=== PATIENT | female | born 1970 | race Caucasian/White ===

== ENCOUNTER 2016-09-30 06:13 | Inpatient (IN) | payer OTHER ==
[2016-09-29 17:09] VITALS: BMI 44.4
[2016-09-30] VITALS (37 sets, daily range): BP systolic 82–115; BP diastolic 47–72; PULSE 62–107; RESP 5–28; Ht 157.5 cm; Wt 48.8 kg
[~2016-09-30] VITALS: Ht 157.5 cm; Wt 48.8 kg
[~2016-09-30 06:13] MED LIST: DIPH25CA6 PO; IMIT25 PO; IPRA4AER INHALATION; LORA10TA3 PO; MONT10TA24 PO; OMEP20CA16 PO
[2016-09-30] MEDS ORDERED: CEFAZOLIN 2 GM/50 ML (PMX) 50 ML IVPB SCH (07:00)
[2016-09-30] MEDS ORDERED: CEFAZOLIN 1 GM INJ ONE (07:00)
[2016-09-30] MEDS ORDERED: LACTATED RINGER'S 1,000 ML IV* SCH (07:00)
[2016-09-30] MEDS ORDERED: BEN25 PO (07:03)
[2016-09-30] MEDS ORDERED: ALBU18HF INHALATION (07:03)
[2016-09-30] MEDS ORDERED: IPRATROPIUM (NEB) 0.5 MG/2.5 ML AMP INH ONE (08:00)
[2016-09-30] MEDS ORDERED: ALBUTEROL 0.5% (NEB) 2.5 MG/0.5 ML AMP INH ONE (08:00)
--- NOTE | 2016-09-30 08:57 | HP ---
Date/Time of Note Date/Time of Note DATE: 09/30/16 TIME: 08:43 Assessment/Plan VTE Prophylaxis VTE Prophylaxis Intervention: ambulation Lines/Catheters IV Catheter Type (from Nrsg): Peripheral IV Assessment/Plan Assessment/Plan PELVIC PAIN LEFT OVARIAN CYST WEBB EXP LAP LEFT OVARIAN CYSTECTOMY POSS LSO POSS BSO HPI/ROS Admit Date/Time Admit Date/Time Sep 30, 2016 at 06:13 Hx of Present Illness 45y.o C/O LLQ PAIN FOR ALMOST 1YR WHO HAD LT OVARIAN CYSTECTOMY AT 18 YRS OLD WHO ALSO HAD X2C-S HERE FOR EXP LAP LT OVARIAN CYSTECTOMY FOR LEFT OVARIAN CYST WHICH HAS BEEN PERSISTANLY EXIST WHICH IS MORE THAN 4CM PATIENT WANTS TO PRESERVE FERTILITY IF ITS POSSIBLE ROS Genitourinary: no complaints, other (LEFT OWER QUADRANT PAIN) PMH/Family/Social Past Medical History Medical History: other (ASTHMA ALLERGIC RHINITIS) Past Surgical History Past Surgical Hx: other (X2 SECTION) Family History Significant Family History: cancer (STOMACH CANCER), hypertension (MOM GRAND MOM) Social History Alcohol Use: none Smoking Status: Never smoker Drug Use: none Exam/Review of Systems Vital Signs Vitals Vital Signs Date Time Temp Pulse Resp B/P Pulse Ox O2 Delivery O2 Flow Rate FiO2 09/30/16 08:18 73 20 98 21 09/30/16 06:52 98.6 96/72 Room Air Exam Constitutional: alert, oriented, well developed Genitourinary - Female: CMT, CVA tenderness, nl adnexae (LEFT OVARIAN CYST), nl external genitalia, other, uterus Medications Medications Current Medications Cefazolin Sodium/ Dextrose 50 ml @ 100 mls/hr PREOP IVPB ; Start 09/30/16 at 07 :00; Stop 09/30/16 at 15:00 Lactated Ringer's (Lr) 1,000 ml @ 125 mls/hr Q8H IV* ; Start 09/30/16 at 07:00 ; Stop 09/30/16 at 14:59 ABBEY CHARLES MD Sep 30, 2016 08:53
[2016-09-30] MEDS ORDERED: MEPERIDINE 25 MG INJ IV PRN (09:30)
[2016-09-30] MEDS ORDERED: ONDANSETRON 4 MG INJ IV PRN ×2 (09:30→10:00)
[2016-09-30] MEDS ORDERED: HYDROmorphONE (0.2 MG/ML) 10ML SYG IV PRN ×3 (09:30)
[2016-09-30] MEDS ORDERED: PROCHLORPERAZINE 10 MG INJ IV PRN (09:30)
[2016-09-30] MEDS ORDERED: DIPHENHYDRAMINE 50 MG INJ IV PRN ×2 (09:30→10:00)
[2016-09-30] MEDS ORDERED: HYDROmorphONE 0.2 MG/ML PCA ONE (10:00)
[2016-09-30] MEDS ORDERED: HYDROCODONE/APAP (5/325) TAB PO PRN (10:00)
[2016-09-30] MEDS ORDERED: NALOXONE (0.4 MG/ML) INJ IV PRN (10:00)
[2016-09-30] MEDS: FENTAnyl 50 MCG/ML VIAL IV PRN ×2 (10:05→10:28)
[2016-09-30] MEDS: HYDROmorphONE 0.2 MG/ML PCA IV SCH (10:11)
--- NOTE | 2016-09-30 12:32 | OPR ---
DATE OF OPERATION: 09/30/2016 PREOPERATIVE DIAGNOSIS: Pelvic pain, left ovarian cyst. POSTOPERATIVE DIAGNOSIS: Pelvic pain, left ovarian cyst. OPERATION PERFORMED: Exploratory laparoscopic hysterectomy, left ovarian cystectomy. ANESTHESIA: General. ANESTHESIOLOGIST: Dr. Farias SURGEON: Lv Coats MD PORTAL DEVELOPER: Brant Enamorado MD PROCEDURE: Under appropriate induction of general anesthesia, the patient was placed in the frog po sition. A Bah was inserted under sterile conditions and repositioned to supine. The abdominal wa ll was prepped and draped in the usual aseptic manner. A transverse incision was made under the pre vious scar, which was hardly seen, and went through the subcutaneous tissue to the recti fascia, whi ch was incised the length of the incision and a fascial flap was created by blunt and sharp dissecti on of the tendinous attachment upward and downward, and the rectus muscles split in the midline and the peritoneal cavity was entered. The pelvic organ was explored. The uterus was normal size and c onsistency and the left adnexa was palpated and felt a cystic structure, which was brought out throu gh the incision, which appeared to be approximately 5 cm in longitudinal diameter, width of 2.5-cm, which originated from the left ovary and cortex. It was rather outside next to the mesosalpinx and the left fallopian tube was spread over onto the cystic mass which has multiple small cystic structu res which was purplish colored and the entire cyst was thin walled, but not translucent. This was g ently from the fallopian tube and the fallopian tube was restored after the cystic structu re was removed unruptured. Then the defect was closed with 2-0 chromic catgut in continuous manner and this area was covered with a small piece of Interceed to prevent further adhesion. No bleeder w as noted. The right ovary was checked, which was normal in appearance. There was a small paratubal cyst which was less than 1 cm, which was punctured and drained. No bleeder was noted. Sponge count was correct. The parietal peritoneum was closed using 0 chromic catgut in continuous manner, muscle was closed with 0 chromic catgut in continuous manner. Fascia was closed with #1 Vicryl in continu ous manner. The subcutaneous tissue was closed with 0 plain in continuous manner. The skin was srinivas sed with 3-0 Monocryl in subcuticular manner. Steri-Strips were applied. Pressure dressing was cydney lied. Estimated blood loss was negligible. The patient withstood the procedure and was sent to the recovery room in stable condition. Dictated By: LV GAO/BOAZ Conf#: [id number] DID#: [id number]
[2016-09-30] MEDS ORDERED: NEOSTIGMINE 3 MG/3 ML SYRINGE ONE (17:03)
[2016-09-30] MEDS ORDERED: ONDANSETRON 4 MG INJ ONE (17:03)
[2016-09-30] MEDS ORDERED: PROPOFOL 20 ML ONE (17:03)
[2016-09-30] MEDS ORDERED: HYDROmorphONE 2 MG/ML SYG ONE (17:03)
[2016-09-30] MEDS ORDERED: SUCCINYLCHOLINE CHLORIDE 100 MG/5 ML SYG IV ONE (17:03)
[2016-09-30] MEDS ORDERED: FENTAnyl 50 MCG/ML VIAL ONE (17:03)
[2016-09-30] MEDS ORDERED: MIDAZOLAM 1 MG/ML 2 ML INJ ONE (17:03)
[2016-09-30] MEDS ORDERED: PHENYLephrine (100 MCG/ML) 5ML SYG ONE ×2 (17:03)
[2016-09-30] MEDS ORDERED: DEXAMETHASONE 4 MG/ML 1 ML INJ ONE (17:03)
[2016-09-30] MEDS ORDERED: FAMOTIDINE 20 MG INJ ONE (17:03)
[2016-09-30] MEDS ORDERED: ROCURONIUM 50 MG INJ ONE (17:03)
[2016-09-30] MEDS ORDERED: GLYCOPYRROLATE 0.4 MG INJ ONE (17:03)
[2016-09-30] MEDS ORDERED: LIDOCAINE 2% (SDV) 5 ML INJ ONE (17:03)
[2016-09-30] MEDS ORDERED: KETOROLAC 30 MG INJ ONE (17:03)
[2016-09-30 19:09] LABS: ADD UMIC YES; URINE BILIRUBIN (Dip) NEGATIVE (NEGATIVE); URINE BLOOD (Dip) TRACE (NEGATIVE); URINE COLOR LT. YELLOW (YELLOW); URINE GLUCOSE (Dip) NEGATIVE (NEGATIVE); URINE KETONES (Dip) NEGATIVE (NEGATIVE); URINE LEUKOCYTE ESTERASE (Dip) NEGATIVE (NEGATIVE); URINE NITRITE (Dip) NEGATIVE (NEGATIVE); URINE TOTAL PROTEIN (Dip) NEGATIVE (NEGATIVE); URINE UROBILINOGEN (Dip) 0.2 E.U./dL (0.1-1.0)
[2016-09-30 19:43] LABS: SQUAMOUS EPITHELIAL CELL,UR FEW
[2016-09-30] MEDS: IBUPROFEN 600 MG TAB PO PRN (21:51)
[2016-10-01] MEDS ORDERED: OXYCODONE/ACETAMINOPHEN (5/325) TAB PO ONE (01:00)
[2016-10-01 07:10] LABS: BASOPHILS % 0.3 % (0.0-2.0); EOSINOPHILS % 0.3 % (0.0-7.0); HEMATOCRIT 33.2 % (37.0-47.0); HEMOGLOBIN 11.4 g/dl (12.0-16.0); LYMPHOCYTES % 19.6 % (15.0-51.0); MEAN CORPUSCULAR HEMOGLOBIN 31.9 pg (29.0-33.0); MEAN CORPUSCULAR HGB CONC 34.3 g/dl (32.0-37.0); MEAN CORPUSCULAR VOLUME 93.1 fl (82.0-101.0); MEAN PLATELET VOLUME 9.2 fl (7.4-10.4); MONOCYTE # 1.1 10^3/ul (0.3-0.9); MONOCYTES % 10.2 % (0.0-11.0); NEUTROPHIL # 7.2 10^3/ul (1.6-7.5); NEUTROPHILS % 69.6 % (39.0-77.0); PLATELET COUNT 158 10^3/UL (140-440); RED BLOOD COUNT 3.57 10^6/ul (4.20-5.40); RED CELL DISTRIBUTION WIDTH 13.7 % (11.5-14.5); UNCORRECTED WBC 10.3 10^3/ul (4.8-10.8); WHITE BLOOD COUNT 10.3 10^3/ul (4.8-10.8)
[2016-10-01 07:38] LABS: CONDITION 1
[2016-10-01 07:41] VITALS: BP 85/54; RESP 16
[2016-10-01] MEDS: IBUPROFEN 600 MG TAB PO PRN (08:46)
[2016-10-01] MEDS: HYDROmorphONE 0.2 MG/ML PCA IV SCH (11:08)
[2016-10-01] MEDS ORDERED: MONTELUKAST 10 MG TAB PO SCH (11:30)
[2016-10-01] MEDS ORDERED: ALBUTEROL HFA 8 GM INHALER INH SCH (11:30)
[2016-10-01] MEDS ORDERED: LORATADINE 10 MG TAB PO SCH (11:30)
[2016-10-01] MEDS: ALBUTEROL HFA 8 GM INHALER INH SCH ×2 (13:00→17:15)
[2016-10-01] MEDS: IBUPROFEN 600 MG TAB PO SCH ×2 (13:08→17:50)
[2016-10-01 13:11] VITALS: BP 105/64; PULSE 84
--- NOTE | 2016-10-01 14:59 | PD.PPDC ---
[facility] Discharge Instruction Diagnosis Final Diagnosis: s/p exp lap lt ovarian cystectomy Condition Patient Condition: Stable Diet Diet: Resume Regular Diet Activity/Restrictions Activity: May Shower Restrictions: No Exercising No Lifting No Sexual Activity Nothing in the Vagina No [place] No Tampons, douche Wound/Drain Care Instructions Wound/Drain Care Instructions: Wash with soap and water Keep clean and dry Follow-up Follow-up with Physician: 2, Week/Weeks Return to clinic for PEN AND PENCIL REPAIRER Instructions: Fever greater than 101 Chills Worsening abdominal pain Excessive Vaginal Bleeding More than 2 pads per hour Unable to tolerate diet ABBEY CHARLES MD Oct 01, 2016 14:59
--- NOTE | 2016-10-01 15:13 | DS ---
Date/Time of Note Date/Time of Note DATE: 10/01/16 TIME: 15:10 Discharge Summary Admission/Discharge Info Admit Date/Time Sep 30, 2016 at 06:13 Discharge Date/Time oct 01 1799 Final Diagnosis pelvic pain left ovarian cyst Patient Condition: Stable Procedures exp lap and lleft ovsarian cystectomy Hx of Present Illness 45y.o C/O LLQ PAIN FOR ALMOST 1YR WHO HAD LT OVARIAN CYSTECTOMY AT 18 YRS OLD WHO ALSO HAD X2C-S HERE FOR EXP LAP LT OVARIAN CYSTECTOMY FOR LEFT OVARIAN CYST WHICH HAS BEEN PERSISTANLY EXIST WHICH IS MORE THAN 4CM PATIENT WANTS TO PRESERVE FERTILITY IF ITS POSSIBLE Hospital Course unevenful except postop pain Home Meds Reported Medications Diphenhydramine Hcl* (Benadryl*) 25 Mg Cap, 25 MG PO QHS Y for ITCHING, CAP 09/30/16 Albuterol Sulfate* (Ventolin HFA*) 18 Gm Hfa.aer.ad, 2 PUFF INHALATION Q4H, #1 INHALER 09/30/16 Loratadine* (Loratadine*) 10 Mg Tablet, 10 MG PO DAILY, #30 TAB 09/29/16 Montelukast Sodium* (Montelukast Sodium*) 10 Mg Tablet, 10 MG PO DAILY, #30 TAB 09/29/16 Albuterol/Ipratropium* (Combivent Respimat*) 20-100 Mcg/Inh - 4 Gm Aer.w.adap, 2 PUFF INHALATION QID, #1 INHALER 09/29/16 Diphenhydramine Hcl* (Diphenhydramine Hcl*) 25 Mg Capsule, 25 MG PO Q6 Y for ITCHING, CAP 09/29/16 Omeprazole* (Omeprazole*) 20 Mg Capsule.dr, 20 MG PO BID Y for GASTROINTESTINAL UPSET, CAP 07/01/14 Sumatriptan Succinate* (Imitrex*) 25 Mg Tablet, 25 MG PO 03/18/13 Follow-up Plan 2weeks at my office Pending Labs Laboratory Tests Test 09/30/16 18:00 10/01/16 04:55 Urine Bilirubin NEGATIVE (NEGATIVE) Urine Clarity CLEAR (CLEAR) Urine Color LT. YELLOW (YELLOW) Urine Glucose NEGATIVE% (NEGATIVE) Urine Hemoglobin TRACE (NEGATIVE) Urine Ketones NEGATIVE (NEGATIVE) Urine Leukocyte Esterase NEGATIVE (NEGATIVE) Urine Microscopic RBC 2-5/HPF (0) Urine Microscopic WBC 0-2/HPF (0) Urine Nitrite NEGATIVE (NEGATIVE) Urine Specific [place] 1.010 (1.003-1.030) Urine Squamous Epithelial Cells FEW Urine Total Protein NEGATIVE (NEGATIVE) Urine Urobilinogen 0.2 E.U./dL (0.1-1.0) Urine pH 7.0 (5.0-9.0) Basophils # 0.010^3/ul (0.0-0.1) Basophils % 0.3% (0.0-2.0) Eosinophils # 0.010^3/ul (0.0-0.5) Eosinophils % 0.3% (0.0-7.0) Hematocrit 33.2% (37.0-47.0) Hemoglobin 11.4g/dl (12.0-16.0) Lymphocytes # 2.010^3/ul (0.8-2.9) Lymphocytes % 19.6% (15.0-51.0) Mean Corpuscular Hemoglobin 31.9pg (29.0-33.0) Mean Corpuscular Hemoglobin Concent 34.3g/dl (32.0-37.0) Mean Corpuscular Volume 93.1fl (82.0-101.0) Mean Platelet Volume 9.2fl (7.4-10.4) Monocytes # 1.110^3/ul (0.3-0.9) Monocytes % 10.2% (0.0-11.0) Neutrophils # 7.210^3/ul (1.6-7.5) Neutrophils % 69.6% (39.0-77.0) Nucleated Red Blood Cells # 0.010^3/ul (0.0-0.0) Nucleated Red Blood Cells % 0.0/100WBC (0.0-0.0) Platelet Count 12659^3/UL (140-440) Red Blood Count 3.5710^6/ul (4.20-5.40) Red Cell Distribution Width 13.7% (11.5-14.5) White Blood Count 10.310^3/ul (4.8-10.8) Microbiology Date/Time Source Procedure Growth Status 09/30/16 18:00 Bah Catheter Urine Culture - Preliminary NO GROWTH AFTER 24 HOURS Resulted ABBEY CHARLES MD Oct 01, 2016 15:12
[2016-10-01 19:15] VITALS: BP 131/65; RESP 18
== END 2016-10-01 19:30 | disposition home or self-care (01) | DRG 743 ==
LOC: REC 06:13 → MS1 12:40
PROVIDERS: ADMIT Obstetrics & Gynecology; ATTEND Obstetrics & Gynecology
PROC: 0UB10ZZ Excision of Left Ovary, Open Approach (ICD-10-PCS; principal; 2016-09-30 08:00)
DX: D27.1 Benign neoplasm of left ovary (principal)
CPT/HCPCS: 81001; 81003; 84703; 85025; 86850; 86900; 86901; 86920; 87086; 88305; 94664; J0330; J0690; J1100; J1170; J1200; J1885; J2250; J2370; J2405; J2710; J3010; J7120